=== PATIENT | female | born 1960 | race African-American/Black ===

== ENCOUNTER 2018-03-15 15:02 | Emergency (ER) | payer SELFPAY ==
[~2018-03-15] VITALS: Ht 160 cm; Wt 61.2 kg
[2018-03-15 15:21] VITALS: BP 135/93
[2018-03-15] MEDS ORDERED: IBUPROFEN 600 MG TABLET PO ONE ×2 (15:26→15:30)
== END 2018-03-15 19:16 | disposition home or self-care (01) ==
LOC: ER 15:10
DX: S63.8X2A Sprain of other part of left wrist and hand, initial encounter (principal); S80.11XA Contusion of right lower leg, initial encounter; M06.9 Rheumatoid arthritis, unspecified; V43.63XA Car passenger injured in collision with pick-up truck in traffic accident, initial encounter; Y93.89 Activity, other specified; Y92.413 State road as the place of occurrence of the external cause; Y99.8 Other external cause status
CPT/HCPCS: 73090-TC; 73120-TC; A4606; Z7610

== ENCOUNTER 2018-03-20 11:44 | Emergency (ER) | payer SELFPAY ==
[~2018-03-20] VITALS: Ht 167.6 cm; Wt 54.4 kg
[2018-03-20 12:01] VITALS: BP 166/106
--- NOTE | 2018-03-20 12:34 | NUR ---
Patient discharged to home in stable condition. Written and verbal after care instructions given. Patient verbalizes understanding of instruction.
== END 2018-03-20 12:33 | disposition home or self-care (01) ==
LOC: ER 11:46
DX: Z47.89 Encounter for other orthopedic aftercare (principal); S62.292D Other fracture of first metacarpal bone, left hand, subsequent encounter for fracture with routine healing; S52.291D Other fracture of shaft of right ulna, subsequent encounter for closed fracture with routine healing; M06.9 Rheumatoid arthritis, unspecified; X58.XXXD Exposure to other specified factors, subsequent encounter
CPT/HCPCS: A4606; Z7502; Z7610